=== PATIENT | male | born 2005 | race Two or more races ===

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

== ENCOUNTER 2024-02-01 22:43 | Emergency (ER) | payer OTHER, MEDICAID ==
[~2024-02-01] VITALS: Ht 175.3 cm; Wt 68.1 kg
[2024-02-01] MEDS: BACITRACIN TOP OINT 1 UD PKG TOP ONE (23:13)
[2024-02-01 23:18] VITALS: BP 118/82; PULSE 102; RESP 20; TEMP 98.9; O2SAT 97
== END 2024-02-01 23:19 | disposition home or self-care (01) ==
LOC: ER 22:43
DX: S61.411A Laceration without foreign body of right hand, initial encounter (principal); W22.8XXA Striking against or struck by other objects, initial encounter; Y93.89 Activity, other specified; Y92.89 Other specified places as the place of occurrence of the external cause; Y99.8 Other external cause status
CPT/HCPCS: 12002; 12042

== ENCOUNTER 2024-07-18 04:00 | Emergency (ER) | payer OTHER, MEDICAID ==
[~2024-07-18] VITALS: Ht 175.3 cm; Wt 62.8 kg
[2024-07-18 04:26] VITALS: BP 117/92; PULSE 75; RESP 18; TEMP 98.6; O2SAT 98
[2024-07-18] MEDS: TETRACAINE HCL 0.5% OPTH(EYE) SOLN 4ML LEFTEYE ONE (04:37)
[2024-07-18] MEDS: FLUORESCEIN SOD OPTH TEST STRIP LEFTEYE ONE (04:37)
[2024-07-18] MEDS ORDERED: ERY05OO OP (04:40)
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
== END 2024-07-18 04:56 | disposition home or self-care (01) ==
LOC: ER 04:00
DX: S05.02XA Injury of conjunctiva and corneal abrasion without foreign body, left eye, initial encounter (principal); J45.909 Unspecified asthma, uncomplicated; Z86.69 Personal history of other diseases of the nervous system and sense organs; Z79.899 Other long term (current) drug therapy; W51.XXXA Accidental striking against or bumped into by another person, initial encounter; Y93.89 Activity, other specified; Y92.89 Other specified places as the place of occurrence of the external cause; Y99.8 Other external cause status